=== PATIENT | female | born 1975 | race Caucasian/White ===

== ENCOUNTER 2016-10-02 01:46 | Emergency (ER) | payer BC ==
[~2016-10-02] VITALS: Ht 177.8 cm; Wt 57.9 kg
[~2016-10-02 01:46] MED LIST: PRED10TA PO
[2016-10-02 01:51] VITALS: TEMP 36.8; Ht 177.8 cm; Wt 57.9 kg
[2016-10-02] MEDS ORDERED: DiphenhydrAMINE HCL 50 MG/ML VIAL IV STA (02:15)
[2016-10-02] MEDS ORDERED: SODIUM CHLORIDE 0.9% 1000ML 1,000 ML IV ONE (02:15)
[2016-10-02] MEDS ORDERED: METHYLPREDNISOLONE 125 MG VIAL IV STA (02:15)
[2016-10-02] MEDS ORDERED: RANITIDINE HCL 50 MG/100 ML D5W IV STA (02:15)
[2016-10-02] MEDS ORDERED: DIPH1TAB PO (02:16)
[2016-10-02] MEDS ORDERED: PRD/1 PO (02:16)
[2016-10-02] MEDS ORDERED: NXM/40 PO (02:27)
[2016-10-02] MEDS ORDERED: TPRSR/25 PO (02:27)
[2016-10-02] MEDS ORDERED: PRED20TA PO (03:13)
[2016-10-02 03:32] VITALS: BP 132/80; PULSE 63; O2SAT 98
--- NOTE | 2016-10-02 06:27 | EMERGENCY ROOM VISIT NOTE ---
History First contact with patient: 01:57 Chief Complaint: RASH Stated Complaint: RASH ON CHEST,NECK AND ARMS-GETTING WORSE History of Present Illness The patient is a 41 year old female who presents to the Emergency Room with complaints of rash on her arms, chest, and back worsening over the past few days. The patient did follow with her PCP for this and was started on prednisone. The patient believes this is from a control that she started and has since stopped. The patient is not experiencing throat swelling, chest pain, chest tightness, abdominal pain, or other symptoms. Her rash is very itchy, prompting her to come to the ER. She rates her overall discomfort 6/10. Review of Systems More than 10 systems were reviewed and otherwise negative with the exception of history of present illness. Past Medical/Surgical History No chronic medical disease Family History No pertinent family history Social History Smoking Status: Never Smoker Housing Status: lives with family Current/Historical Medications Scheduled Esomeprazole Magnesium (Nexium), 40 MG PO QPM Metoprolol Succinate (Metoprolol Succinate ER), 12.5 MG PO QPM Prednisone (Prednisone), PO UD Prednisone (Prednisone), 0 PO DAILY Scheduled PRN Diphenhydramine Hcl (Benadryl Allergy), 25 MG PO UD PRN for ALLERGIC REACTION Physical Exam Vital Signs Date Time Temp Pulse Resp B/P (MAP) Pulse Ox O2 Delivery O2 Flow Rate FiO2 10/02/16 03:32 63 16 132/80 98 10/02/16 01:51 36.8 77 22 152/79 100 Room Air Pain Rating (0-10): 0 Physical Exam VITALS: Vitals are noted on the nurse's note and reviewed by myself. Vital signs stable. GENERAL: Well-developed, well-nourished, white female, who is in no acute distress and resting comfortably. Patient is cooperative with the examination. MOUTH: Mucous membranes moist. Tonsils are not enlarged. Pharynx without erythema, blood, or exudate. Uvula midline. Airway patent. NECK: Supple without nuchal rigidity. No lymphadenopathy. No thyromegaly. Cervical spine is nontender. HEART: Regular rate and rhythm without murmurs gallops or rubs. LUNGS: Clear to auscultation bilaterally without wheezes, rales or rhonchi. No retractions or accessory muscle use. SKIN: The skin was with diffuse maculopapular rash with scattered urticaria primarily throughout the anterior chest, back, and upper extremities. Medical Decision & Procedures Medications Administered Medications (Trade) Dose Ordered Sig/Vladimir Route Start Time Stop Time Status Last Admin Dose Admin Diphenhydramine HCl (Benadryl Inj) 50 mg NOW STAT IV 10/02/16 02:15 10/02/16 02:16 DC 10/02/16 02:30 50 MG Methylprednisolone Sodium Succinate (Solu-Medrol IV) 125 mg NOW STAT IV 10/02/16 02:15 10/02/16 02:16 DC 10/02/16 02:30 125 MG Sodium Chloride 1,000 ml @ 999 mls/hr Q1H1M ONCE IV 10/02/16 02:15 10/02/16 03:15 DC 10/02/16 02:31 999 MLS/HR Ranitidine HCl (zANTac IV) 50 mg NOW STAT IV 10/02/16 02:15 10/02/16 02:16 DC 10/02/16 02:31 50 MG ED Course Physical exam and history were performed. Nursing notes, EMR, and Medication List were personally reviewed. Patient appears to be experiencing an allergic reaction. The patient has had symptoms off and on for the past several days presumably from a control products. The patient is no longer taking this, but continues to have some symptoms. IV access was established and the patient was provided IV Benadryl, IV Zantac, and IV Solu-Medrol. The patient was monitored here in the emergency department and had almost complete resolution of her symptoms. The patient feels well and is comfortable with discharge home. I will give the patient a higher dose of prednisone for the next several days and then taper her down over a 9 day course. The patient will need to follow with her PCP for further care and management. She was otherwise invited back to the ER with any new, worsening, or concerning symptoms. The chart was completed utilizing [employer] Voice Recognition Software. Grammatical errors, random word insertions, pronoun errors, and incomplete sentences are an occasional consequence of this system due to software limitations, ambient noise, and hardware issues. Any formal questions or concerns about the content, text, or information contained within the body of this dictation should be directly addressed to the provider for clarification. . Medical Decision Differential diagnosis: Etiologies such as contact dermatitis, viral exanthem, urticaria, allergic reaction, Armijo-Sebastian syndrome, toxic epidermal necrolysis, erythema multiforme, cellulitis, scabies, HSV, varicella, zoster, eczema, staph scalded skin syndrome, fungal infection, as well as others were entertained. Medication Reconcilliation Current Medication List: was personally reviewed by me Blood Pressure Screening Blood pressure disposition: Elevated BP felt to be situational Impression Primary Impression: Allergic reaction Departure Information Dispostion Home / Self-Care Condition GOOD Prescriptions Prednisone (Prednisone) 20 Mg Tab 0 PO DAILY, #18 TAB 3 DAILY FOR 3 DAYS, THEN 2 DAILY FOR 3 DAYS, THEN 1 DAILY FOR 3 DAYS. Prov: Jose Springer PA-C 10/02/16 Forms WORK / SCHOOL INSTRUCTIONS, HOME CARE DOCUMENTATION FORM, IMPORTANT VISIT INFORMATION Patient Instructions My [facility] Additional Instructions You were seen and evaluated today on an emergency basis only. This is not a substitute for, or an effort to provide, complete comprehensive medical care. It is not possible to recognize and treat all injuries or illnesses in a single emergency department visit. For this reason it is recommended that you followup with your primary care physician's office this week for ongoing care and evaluation. Take prednisone as prescribed. You may use [id number] Benadryl 25-50 mg every 6 hours as needed for additional relief of symptoms. You are welcome to return to the emergency department anytime with new, worsening, or concerning symptoms.
== END 2016-10-02 03:33 | disposition home or self-care (01) ==
LOC: C.EDB 01:48 → C.EDA 03:33
DX: T78.40XA Allergy, unspecified, initial encounter (principal); X58.XXXA Exposure to other specified factors, initial encounter